=== PATIENT | female | born 1980 | race Hispanic/Latino ===

== ENCOUNTER → 2020-07-29 | Day surgery (SDC) | payer OTHER ==
[~2020-07-29] MED LIST: DEXAMETHASONE SOD PHOS INJ 4 MG/ML VIAL ONE; KETOROLAC TROMETHAMINE 30 MG/ML VIAL ONE; LIDOCAINE HCL 2% LOCAL INJ 5 ML SDV VIAL INJ ONE; ONDANSETRON HCL INJ 2MG/ML 2ML 2 MG/ML VIAL ONE; PROPOFOL IV EMULSION 10 MG/ML 20 ML VIAL ONE; SEVOFLURANE INHAL SOLN 250 ML PEN BTL ONE
[2020-07-29] MEDS: CLINDAMYCIN 600MG / 50ML 50 ML IV ONE (07:35)
[2020-07-29 08:28] VITALS: BP 130/88
[2020-07-29] MEDS: ACETAMINOPHEN/CODEINE 300MG - 30MG TAB ONE (08:41)
== END | disposition home or self-care (01) ==
LOC: OR 05:37
PROVIDERS: ATTEND Specialist
DX: G56.03 Carpal tunnel syndrome, bilateral upper limbs (principal); Z01.812 Encounter for preprocedural laboratory examination; Z20.828 Contact with and (suspected) exposure to other viral communicable diseases; Z86.711 Personal history of pulmonary embolism; Z88.0 Allergy status to penicillin
CPT/HCPCS: 29848; J1100; J1885; J2001; J2405; J2704; U0002